=== PATIENT | female | born 1995 | race Caucasian/White ===

== ENCOUNTER 2017-09-11 10:35 | Emergency (ER) | payer OTHER ==
[2017-09-11 10:38] VITALS: TEMP 36.8
[2017-09-11] MEDS ORDERED: SODIUM CHLORIDE 0.9% 1000ML 1,000 ML IV STA (10:54)
[2017-09-11] MEDS ORDERED: CEFTRIAXONE SOD INJ 1 GM ADDVIAL IV STA (10:54)
[2017-09-11] MEDS ORDERED: DEXAMETHASONE **PF** INJ 10 MG/ML VIAL IV ONE (11:00)
[2017-09-11 11:22] LABS: BASO % 0.9 %; BASO ABS # 0.06 K/uL (0-0.2); COMPLETE YES; EOS % 0.1 %; HEMATOCRIT 41.7 % (37-47); LYMPH % 25.2 %; LYMPH ABS # 1.69 K/uL (1.2-3.4); MEAN CELL VOLUME 93.3 fL (80-100); MEAN CORPUSCULAR HEMOGLOBIN 30.6 pg (25-34); MEAN CORPUSCULAR HGB CONC 32.9 g/dl (32-36); MONO % 19.3 %; NEUT % 54.5 %; PLATELET COUNT 205 K/uL (130-400); RED BLOOD COUNT 4.47 M/uL (4.2-5.4)
[2017-09-11] MEDS ORDERED: CLIN150C PO (11:31)
[2017-09-11] MEDS ORDERED: PRED20TA PO (11:31)
[2017-09-11] MEDS ORDERED: NAPR-1169 PO (11:31)
[2017-09-11 11:35] LABS: BLOOD UREA NITROGEN 10 mg/dl (7-18); CREATININE 0.83 mg/dl (0.60-1.20); GLUCOSE 90 mg/dl (70-99)
[2017-09-11 11:36] LABS: BUN/CREATININE RATIO 12.4 (10-20); C-REACTIVE PROTEIN 4.87 mg/dl (0-0.29); CALCIUM 9.8 mg/dl (8.5-10.1); CARBON DIOXIDE 29 mmol/L (21-32); CHLORIDE 99 mmol/L (98-107); POTASSIUM 4.5 mmol/L (3.5-5.1); SODIUM 138 mmol/L (136-145)
[2017-09-11] MEDS ORDERED: METH4PAK PO (12:21)
--- NOTE | 2017-09-11 12:21 | EMERGENCY ROOM VISIT NOTE ---
History Report prepared by Aleksandar: Jagdeep Henriquez Under the Supervision of: Dr. Parag Starr M.D. First contact with patient: 10:50 Chief Complaint: THROAT PAIN/INJURY Stated Complaint: TONSILITIS,SWOLLEN LYMPH NODES, CANT SWALLOW History of Present Illness The patient is a 22 year old female who presents to the Emergency Room with complaints of constant lymphadenopathy of the neck beginning a week ago. She also complains of fevers. She was seen for her symptoms four days ago and had a negative mono screen. The patient states that she is having difficulty swallowing, but is able to eat and swallow saliva. She is on Prednisone and recently finished a treatment of Penicillin. The patient denies chills. Source of History: patient Onset: a week ago Position: neck Quality: other (lymphadenopathy) Timing: constant Associated Symptoms: + fevers, No chills Review of Systems See HPI for pertinent positives & negatives. A total of 10 systems reviewed and were otherwise negative. Past Medical & Surgical Medical Problems: (1) No Known Active Medical Problems Family History No pertinent family history stated. Social History Occupation Status: [employer] student Current/Historical Medications Scheduled Clindamycin Hcl (Cleocin), 1 CAP PO QID Methylprednisolone (Medrol Dosepak), 1 PKT PO UD Naproxen (Naprosyn), 500 MG PO BID Prednisone (Prednisone), 1 TAB PO BID Allergies Coded Allergies: No Known Allergies (Unverified , 09/11/17) Physical Exam Vital Signs Date Time Temp Pulse Resp B/P (MAP) Pulse Ox O2 Delivery O2 Flow Rate FiO2 09/11/17 12:30 77 16 96/57 100 09/11/17 10:38 36.8 98 16 106/70 98 Room Air Physical Exam GENERAL: Patient is well appearing and in no acute distress. HEENT: No acute trauma, normocephalic atraumatic, mucous membranes moist, no nasal congestion, no scleral icterus. large erythematous exudative tonsils bilaterally. Clear view of posterior oropharynx. No uvular deviation. NECK: No stridor, no adenopathy, no meningismus, trachea is midline. Enlarged lymph nodes bilateral anterior neck. LUNGS: No dyspnea. Clear to auscultation and equal bilaterally. No wheeze, no rhonchi. HEART: Regular rate and rhythm. No murmurs, rubs, gallops appreciated. ABDOMEN: Soft, nontender, bowel sounds positive, no masses appreciated, no peritonitis. BACK: No midline tenderness, no CVA tenderness EXTREMITIES: Normal motion all extremities, no cyanosis, no edema. NEUROLOGIC: Alert and oriented, no acute motor or sensory deficits, no focal weakness, cranial nerves grossly intact. SKIN: No rash, no jaundice, no diaphoresis. Medical Decision & Procedures Laboratory Results 09/11/17 10:10 Red Blood Count 4.47, Mean Corpuscular Volume 93.3, Mean Corpuscular Hemoglobin 30.6, Mean Corpuscular Hemoglobin Concent 32.9, Mean Platelet Volume 10.0, Neutrophils (%) (Auto) 54.5, Lymphocytes (%) (Auto) 25.2, Monocytes (%) (Auto) 19.3, Eosinophils (%) (Auto) 0.1, Basophils (%) (Auto) 0.9, Neutrophils # (Auto ) 3.65, Lymphocytes # (Auto) 1.69, Monocytes # (Auto) 1.29, Eosinophils # (Auto ) 0.01, Basophils # (Auto) 0.06 09/11/17 10:10 Test 09/11/17 10:10 White Blood Count 6.70 K/uL (4.8-10.8) Red Blood Count 4.47 M/uL (4.2-5.4) Hemoglobin 13.7 g/dL (12.0-16.0) Hematocrit 41.7 % (37-47) Mean Corpuscular Volume 93.3 fL (80-100) Mean Corpuscular Hemoglobin 30.6 pg (25-34) Mean Corpuscular Hemoglobin Concent 32.9 g/dl (32-36) Platelet Count 205 K/uL (130-400) Mean Platelet Volume 10.0 fL (7.4-10.4) Neutrophils (%) (Auto) 54.5 % Lymphocytes (%) (Auto) 25.2 % Monocytes (%) (Auto) 19.3 % Eosinophils (%) (Auto) 0.1 % Basophils (%) (Auto) 0.9 % Neutrophils # (Auto) 3.65 K/uL (1.4-6.5) Lymphocytes # (Auto) 1.69 K/uL (1.2-3.4) Monocytes # (Auto) 1.29 K/uL (0.11-0.59) Eosinophils # (Auto) 0.01 K/uL (0-0.5) Basophils # (Auto) 0.06 K/uL (0-0.2) RDW Standard Deviation 48.4 fL (36.4-46.3) RDW Coefficient of Variation 14.2 % (11.5-14.5) Immature Granulocyte % (Auto) 0.0 % Immature Granulocyte # (Auto) 0.00 K/uL (0.00-0.02) Anion Gap 10.0 mmol/L (3-11) Estimated GFR () 116.8 Estimated GFR (Non- 100.8 BUN/Creatinine Ratio 12.4 (10-20) Calcium Level 9.8 mg/dl (8.5-10.1) C-Reactive Protein 4.87 mg/dl (0-0.29) Monoscreen POS (NEG) Laboratory results as reviewed by me. Medications Administered Medications (Trade) Dose Ordered Sig/Alexandra Route Start Time Stop Time Status Last Admin Dose Admin Sodium Chloride 1,000 ml @ 999 mls/hr Q1H1M STAT IV 09/11/17 10:54 09/11/17 11:54 DC 09/11/17 11:09 999 MLS/HR Dexamethasone Sodium Phosphate (Dexamethasone Inj Pf) 10 mg NOW ONCE IV 09/11/17 11:00 09/11/17 11:01 DC 09/11/17 11:09 10 MG Ceftriaxone Sodium (Rocephin Inj) 1 gm NOW STAT IV 09/11/17 10:54 09/11/17 10:56 DC 09/11/17 11:09 1 GM ED Course 1050: The patient was evaluated in room B2. A complete history and physical exam was performed. 1054: Ordered Rocephin Inj 1 gm IV, Sodium Chloride 1000 ml @ 999 mls/hr IV. 1100: Ordered Dexamethasone Inj 10 mg IV. 1215: Reevaluated the patient. She feels better. Discussed results and discharge instructions: she verbalized understanding and agreement. She is agreeable to outpatient steroid treatment. I advised that she finish her course of Clindamycin. The patient is ready for discharge. Medical Decision Differential: Viral, Tonsillitis, Strep, Independence, Peritonsillar Abscess, Retropharyngeal Abscess, Otitis, Pneumonia, Influenza, amongst other pathologies entertained. 22 yr old female with tonsillitis and lymph swelling in neck. No swallowing issues nor breathing issues. She has no evidence of tonsillar abscess by exam ( checked twice). Labs reveal Independence+ and otherwise unremarkable other than expected mild CRP elevation. She is already on Clinda per S. Will do medrol dose pack. Discussed symptoms requiring return and what to watch for for abscess. She has full ROM neck and no talking issues and thus retro abscess unlikely. Advised rest and reviewed Independence precautions. Medication Reconcilliation Current Medication List: was personally reviewed by me Blood Pressure Screening Patient's blood pressure: Normal blood pressure Blood pressure disposition: Did not require urgent referral Impression Primary Impression: Mononucleosis Additional Impression: Acute tonsillitis Scribe Attestation The scribe's documentation has been prepared under my direction and personally reviewed by me in its entirety. I confirm that the note above accurately reflects all work, treatment, procedures, and medical decision making performed by me. Departure Information Dispostion Home / Self-Care Prescriptions Methylprednisolone (MEDROL DOSEPAK) 4 Mg Dada 1 PKT PO UD for 6 Days, #1 PKT Prov: Parag Starr M.D. 09/11/17 Referrals [facility] Patient Instructions ED Mononucleosis, ED Tonsillitis, [facility] Problem Qualifiers Additional Impression: Acute tonsillitis Pharyngitis/tonsillitis etiology: infectious mononucleosis Qualified Codes: J03.80 - Acute tonsillitis due to other specified organisms; B27.90 - Infectious mononucleosis, unspecified without complication
[2017-09-11 12:30] VITALS: BP 96/57; PULSE 77; O2SAT 100
== END 2017-09-11 12:31 | disposition home or self-care (01) ==
LOC: C.EDB 10:39 → C.EDC 12:31
DX: B27.90 Infectious mononucleosis, unspecified without complication (principal); J03.80 Acute tonsillitis due to other specified organisms